=== PATIENT | male | born 1975 | race Caucasian/White ===

== ENCOUNTER 2021-02-24 21:08 | Observation (INO) | payer OTHER ==
[~2021-02-24] VITALS: Ht 190.5 cm; Wt 116.8 kg
[2021-02-24 22:08] LABS: EOS # 0.2 (0.0-0.7); EOS % 4.1 % (0-4.0); GRAN # 0.6 (1.4-6.5); GRAN % 14.1 % (42.2-75.2); HEMATOCRIT 39.2 % (42.0-52.0); HEMOGLOBIN 12.9 g/dl (13.5-18.0); LYMPH % 51.5 % (20.0-51.0); MEAN CELL VOLUME 87 fl (80.0-100.0); MEAN CORPUSCULAR HEMOGLOBIN 29 pg (27.0-31.0); MEAN CORPUSCULAR HGB CONC 33 g/dl (33.0-37.0); MEAN PLATELET VOLUME 9.9 fl (7.4-10.4); MONO # 1.1 (0.1-0.6); MONO % 28.8 % (1.7-9.3); PLATELET COUNT 339 K/mm3 (130-400); RED BLOOD COUNT 4.52 M/mm3 (4.20-5.60)
[2021-02-24 22:22] LABS: ALBUMIN 4.5 gm/dL (3.5-5.0); BILIRUBIN,TOTAL 0.3 mg/dL (0.0-1.0); POTASSIUM 4.1 mmol/L (3.4-5.0); TOTAL PROTEIN 7.7 gm/dL (6.4-8.2)
[2021-02-24 22:33] LABS: C-REACTIVE PROTEIN 12.1 mg/dL (0.0-0.9)
[2021-02-24 22:59] LABS: BAND 5 % (0-10); BASOPHIL 1 % (0-2); EOSINOPHIL 4 % (0-4); HYPOCHROMIA 1+; LYMPHOCYTE 62 % (20.0-51.0); NEUTROPHILS 3 % (42.0-75.2); PLATELET ESTIMATE NORMAL (NORMAL)
[2021-02-24 23:05] LABS: ERYTHROCYTE SEDIMENTATION RATE 31 mm/hr (0-15)
[2021-02-25] MEDS ORDERED: LEXAPRO20 MG PO (03:10)
[2021-02-25] MEDS ORDERED: ZYLOPRIM 300MG300 MG PO (03:10)
[2021-02-25] MEDS ORDERED: ADDERALL10 MG PO (03:10)
--- NOTE | 2021-02-25 03:46 | NUR ---
Vancomycin Initial Dosing Pharmacy Note Indication/duration: SSTI CELLULITIS OF LEFT LOWER ABDOMEN FAILED OUPT TX / 7 DAYS GOAL: 10-20 HX: NONE IDENTIFIED BMI: 32.2 WT: 116.8 KG ADJBW : 97 KG SCR: 1 ADJBW ESTCRCL ~129 ML/MIN T 1/2 ~ 6H TMAX: 98.6 WBC: 3.9 LA: WNL ESR: 31 CRP: 12.1 MICRO IN PROCESS NO IMAGING AVAILABLE AT THIS TIME PT LOADED WITH 2.25 GM X 1, THEN STARTED ON 1.5 GM Q8H. WILL FOLLOW CLOSELY PT IS AT RISK FOR NOT FOLLOWING POPULATION BASED KINETICS AND ACCUMULATION 2/2 ELEVATED BMI. WILL FOLLOW RENAL FUNCTION, MICRO, AND THERAPY PLAN FOR NEED TO CHANGE THERAPY. THANK YOU FOR THIS DOSING CONSULT!
[2021-02-25 06:09] LABS: HEMATOCRIT 39.3 % (42.0-52.0); HEMOGLOBIN 12.6 g/dl (13.5-18.0); MEAN CELL VOLUME 89 fl (80.0-100.0); MEAN CORPUSCULAR HEMOGLOBIN 28 pg (27.0-31.0); MEAN CORPUSCULAR HGB CONC 32 g/dl (33.0-37.0); MEAN PLATELET VOLUME 9.7 fl (7.4-10.4); PLATELET COUNT 304 K/mm3 (130-400); RED BLOOD COUNT 4.44 M/mm3 (4.20-5.60); REDCELL DISTRIBUTION WIDTH-CV 12.2 % (11.5-14.5)
[2021-02-25 06:19] LABS: CALCIUM 8.7 mg/dL (8.4-10.2); CREATININE, serum 1.01 (0.66-1.25); POTASSIUM 4.4 mmol/L (3.4-5.0)
[2021-02-25 06:43] LABS: BAND 4 % (0-10); EOSINOPHIL 5 % (0-4); HYPOCHROMIA 1+; LYMPHOCYTE 61 % (20.0-51.0); NEUTROPHILS 5 % (42.0-75.2); PLATELET ESTIMATE NORMAL (NORMAL)
[2021-02-25 09:02] VITALS: BP 129/76; PULSE 74; TEMP 98.9
--- NOTE | 2021-02-25 09:36 | NUR ---
PT TO ROOM 328 PER WC. REPORT FROM [facility] ED. PT IS A/O X3, DR. ZHENG COMPLETED I&D OF LEFT GROIN ABCESS. PT TOLERATING WELL. DRESSING OF GAUZE AND TAPE TO INCISION CDI. IV RUNNING TO LFA. PLAN ON OVER NOC ABX AND DISCHARGE TOMMMORROW.
--- NOTE | 2021-02-25 10:54 | NUR ---
Initial visit attempt; Patient thanked [employer] for looking in on him and offering God's blessings. Patient had no needs at this time.
[2021-02-25 12:27] VITALS: BP 134/73; PULSE 76; TEMP 97.9
[2021-02-25 15:27] VITALS: BP 146/83; PULSE 73; TEMP 98
[2021-02-25 19:28] VITALS: BP 154/78; PULSE 88; TEMP 98.8
--- NOTE | 2021-02-25 21:09 | NUR ---
PATIENT RESTING IN BED ALERT AND ORIENTED X4. C/O MILD ABDOMINAL PAIN, HEATING PAD TO ABDOMEN WITH GOOD EFFECT. TYLENOL GIVEN FOR 5/10 ABDIMONAL PAIN. IN DEPENDENT IN ROOM. LEFT GROIN AREA DRESSING INTACT. TOLERATED PO WELL NO NAUSEA/VOMING. CALL LIGHT WITHIN REACH. WILL CONTINUE TO MONITOR.
[2021-02-25 23:46] VITALS: BP 136/81; PULSE 75; TEMP 98.2
[2021-02-26 03:51] VITALS: BP 139/88; PULSE 66; TEMP 98.2
[2021-02-26 08:09] LABS: HEMOGLOBIN 12.8 g/dl (13.5-18.0); MEAN CELL VOLUME 88 fl (80.0-100.0); MEAN CORPUSCULAR HEMOGLOBIN 28 pg (27.0-31.0); MEAN CORPUSCULAR HGB CONC 32 g/dl (33.0-37.0); MEAN PLATELET VOLUME 9.9 fl (7.4-10.4); PLATELET COUNT 357 K/mm3 (130-400); RED BLOOD COUNT 4.53 M/mm3 (4.20-5.60)
[2021-02-26 08:18] LABS: CALCIUM 9.2 mg/dL (8.4-10.2); CREATININE, serum 0.92 (0.66-1.25); POTASSIUM 4.3 mmol/L (3.4-5.0)
[2021-02-26 08:38] VITALS: BP 130/74; PULSE 69; TEMP 98.5
--- NOTE | 2021-02-26 09:46 | NUR ---
PT RESTING IN BED. PT INDEPENDENT IN ROOM. GAUZE DRESSING TO LEFT GROIN AREA CDI.PT DENIES NEEDS AT THIS TIME.
[2021-02-26 09:53] LABS: BAND 5 % (0-10); BASOPHIL 1 % (0-2); EOSINOPHIL 2 % (0-4); LYMPHOCYTE 61 % (20.0-51.0); NEUTROPHILS 5 % (42.0-75.2)
[2021-02-26 09:54] LABS: PLATELET ESTIMATE NORMAL (NORMAL)
[2021-02-26 12:59] VITALS: BP 135/85; PULSE 75; TEMP 97.7
--- NOTE | 2021-02-26 14:05 | NUR ---
Patient is from [facility], here visiting his daughter at [facility]. Patient lives at home with his , Eileen Barakat #[phone]. Patient is unsure if he has a valid DPOA but thinks he has one at home; does not want to complete one here at this time. Patient is independent with ADLs and uses no assistive devices or home medical equipenment. PCP is Dr. Ana Mcgee in [facility] with the [facility]. Preferred pharmacy is [facility] in the [facility] in [facility]. Patient states he is willing to use any local pharmacy if needed (his dtr uses the [facility]). The patient has no concerns for this hospital stay or pending discharge. DISCHARGE PLAN: HOME WITH
[2021-02-26 15:59] VITALS: BP 136/74; PULSE 74; TEMP 98.4
--- NOTE | 2021-02-26 19:19 | NUR ---
PATIENT RESTING IN BED. NO ISSUES AT THIS TIME. CALL LIGHT IN REACH, INDEPENDENT IN ROOM. WILL CONTINUE TO MONITOR.
[2021-02-26 20:24] VITALS: BP 151/82; PULSE 73; TEMP 98.8
[2021-02-26 23:49] VITALS: BP 130/80; PULSE 69; TEMP 98.1
[2021-02-27 03:55] VITALS: BP 137/79; PULSE 68; TEMP 97.9
[2021-02-27 07:24] LABS: HEMATOCRIT 40.8 % (42.0-52.0); HEMOGLOBIN 13.3 g/dl (13.5-18.0); MEAN CELL VOLUME 88 fl (80.0-100.0); MEAN CORPUSCULAR HEMOGLOBIN 29 pg (27.0-31.0); MEAN CORPUSCULAR HGB CONC 33 g/dl (33.0-37.0); MEAN PLATELET VOLUME 9.7 fl (7.4-10.4); PLATELET COUNT 386 K/mm3 (130-400); RED BLOOD COUNT 4.63 M/mm3 (4.20-5.60)
[2021-02-27 07:32] LABS: CALCIUM 9.2 mg/dL (8.4-10.2); CREATININE, serum 1.02 (0.66-1.25); POTASSIUM 4.4 mmol/L (3.4-5.0)
[2021-02-27 08:19] VITALS: BP 128/78; PULSE 65; TEMP 98.3
[2021-02-27 08:27] LABS: BAND 1 % (0-10); EOSINOPHIL 4 % (0-4); NEUTROPHILS 12 % (42.0-75.2); PLATELET ESTIMATE NORMAL (NORMAL)
[2021-02-27 08:29] LABS: ANISOCYTOSIS 1+
[2021-02-27 08:30] LABS: LYMPHOCYTE 67 % (20.0-51.0)
[2021-02-27] MEDS ORDERED: MONODOX100 PO (10:49)
[2021-02-27 12:00] VITALS: BP 139/82; PULSE 72; TEMP 98.4
--- NOTE | 2021-02-27 12:53 | NUR ---
Pt A&O, denies pain, on room air. No concerns expressed. Discharge instructions discussed and reviewed w/ pt who verbalized understanding. All questions answered, no further needs. IV dc'd w/ cath tip intact and no issues.
== END 2021-02-27 13:15 | disposition home or self-care (01) ==
LOC: COL.ER 21:08 → SURG 02-25 01:43 → EDBD 02-27 13:15 → SURG 02-27 13:15
PROVIDERS: Emergency Medicine; Physician Assistant; Student in an Organized Health Care Education/Training Program; ADMIT Internal Medicine
DX: L02.214 Cutaneous abscess of groin (principal); A41.9 Sepsis, unspecified organism; D64.9 Anemia, unspecified; D72.819 Decreased white blood cell count, unspecified; M10.9 Gout, unspecified; F32.9 Major depressive disorder, single episode, unspecified; F90.9 Attention-deficit hyperactivity disorder, unspecified type
CPT/HCPCS: 99238; G0378; J0696; J1650; J2270; J2543; J3370; J7030; J7050; Q9967